=== PATIENT | female | born 1975 | race African-American/Black ===

== ENCOUNTER 2019-10-28 10:41 | Emergency (ER) | payer BC ==
[2019-10-28 11:09] VITALS: TEMP 97.3; BMI 38.3
--- NOTE | 2019-10-28 11:18 | PDOC ---
History of Present Illness - General Chief Complaint: Nausea/Vomiting Stated Complaint: Nausea/Vomiting Time Seen by Provider: 10/28/19 11:17 - History of Present Illness Initial Comments: 11/16/19 14:45 43 year old woman with no pmhx presents with R ear pain, nausea and dizziness after vomiting while outside of an urgent care after she was given meclizine. The patient was advised to come to the ER. At bedside the patient notes resolution of her symptoms with the meclizine. ROS GENERAL/CONSTITUTIONAL: No fever or chills. No weakness. HEAD, EYES, EARS, NOSE AND THROAT: No change in vision. No ear pain or discharge. No sore throat. CARDIOVASCULAR: No chest pain or shortness of breath RESPIRATORY: No cough, wheezing, or hemoptysis. GASTROINTESTINAL: + nausea, vomiting, No diarrhea or constipation. GENITOURINARY: No dysuria, frequency, or change in urination. MUSCULOSKELETAL: No joint or muscle swelling or pain. No neck or back pain. SKIN: No rash NEUROLOGIC: No headache, + vertigo, No loss of consciousness, or change in strength/sensation. ENDOCRINE: No increased thirst. No abnormal weight change HEMATOLOGIC/LYMPHATIC: No anemia, easy bleeding, or history of blood clots. ALLERGIC/IMMUNOLOGIC: No hives or skin allergy. PE GENERAL: Awake, alert, and fully oriented, in no acute distress HEAD: No signs of trauma, normocephalic, atraumatic EYES: PERRLA, EOMI, sclera anicteric, conjunctiva clear ENT: + R TM erythema, Moist mucosa NECK: Normal ROM, supple LUNGS: No distress, speaks full sentences, clear to auscultation bilaterally HEART: Regular rate and rhythm, normal S1 and S2, no murmurs, rubs or gallops, peripheral pulses normal and equal bilaterally. ABDOMEN: Soft, nontender. No guarding, no rebound. No masses EXTREMITIES : Normal inspection, Normal range of motion, no edema. No clubbing or cyanosis. NEUROLOGICAL: Cranial nerves II through XII grossly intact. Normal speech, normal gait, no focal sensorimotor deficits SKIN: Warm, Dry, normal turgor, no rashes or lesions noted Assessment and Plan 43 year old woman with no pmhx presents with R ear pain, nausea and dizziness after vomiting while outside of an urgent care after she was given meclizine. consider peripheral vertigo, less concerning for central cause as patient with normal neuro exam, improvement of symptoms afte rmeclizine, and normal ambulation through the ER. Patient with otits media doesd abx outpt care instruction provided follow upw and strict return precations Rach Quiroz, PGY3 Emergency Medicine Past History - Medical History Allergies/Adverse Reactions: Allergies Allergy/AdvReac Type Severity Reaction Status Date / Time No Known Allergies Allergy Verified 10/28/19 11:05 Home Medications: Ambulatory Orders Amoxicillin - [Amoxicillin 250mg Capsule -] 875 mg PO BID #14 capsule 10/28/19 Meclizine HCl 25 mg PO BID #7 tablet 10/28/19 COPD: No HTN: Yes Hypercholesterolemia: Yes - Surgical History Abdominal Surgery: Yes (varian cysts) - Psycho-Social/Smoking History Smoking History: Unknown if ever smoked - Substance Abuse Hx (Audit-C & DAST Scrn) In the last yr the pt used illegal drug/Rx for NonMed reason: Yes Score: Yes response is considered Positive: 1 Screen Result (Positive result requires Nsg. DAST-10): Positive *Physical Exam - Vital Signs Last Vital Signs Temp Pulse Resp BP Pulse Ox 97.3 F L 76 16 142/83 100 10/28/19 10:45 10/28/19 10:45 10/28/19 10:45 10/28/19 10:45 10/28/19 10:45 Discharge - Discharge Information Problems reviewed: Yes Clinical Impression/Diagnosis: Otitis media, Nausea & vomiting Condition: Stable Disposition: HOME - Additional Discharge Information Prescriptions: Amoxicillin - [Amoxicillin 250mg Capsule -] 875 mg PO BID #14 capsule Meclizine HCl 25 mg PO BID #7 tablet - Follow up/Referral Referrals: Marysol Chinchilla MD [Primary Care Provider] - - Patient Discharge Instructions Patient Printed Discharge Instructions: DI for Middle Ear Infection-Adult Additional Instructions: You were seen in the ER for complaints of ear pain and nausea and vomiting Often time vertigo and vomiting can happen from ear irritation. You were found to have an ear infection on the R You have a course of antibiotics that was sent to your pharmacy You also have anti-nausea and dizziness medications Please follow up with your Family Doctor within 1 week. Return to the ER if you develop worsening nausea, vomiting, chest pain, shortness of breath or sweating or any other concerning symptoms. - Post Discharge Activity
[2019-10-28] MEDS ORDERED: SODIUM CHLORIDE 1,000 ML IV SCH (11:30)
[2019-10-28] MEDS ORDERED: MECLIZINE HCL 12.5 MG TABLET PO ONE (11:52)
[2019-10-28] MEDS ORDERED: MECLIZINE HCL 12.5 MG TABLET ONE (11:56)
--- NOTE | 2019-10-28 12:18 | PDOC ---
Documentation entered by Dannielle Rios SCRIBE, acting as scribe for Courtney Patiño MD. Courtney Patiño MD: This documentation has been prepared by the Blanca waddell Xhesika, SCRIBE, under my direction and personally reviewed by me in its entirety. I confirm that the documentation accurately reflects all work, treatment, procedures, and medical decision making performed by me. Attending Attestation - Resident Resident Name: Rach Quiroz - ED Attending Attestation I have performed the following: I have examined & evaluated the patient, The case was reviewed & discussed with the resident, I agree w/resident's findings & plan, Exceptions are as noted - HPI HPI: 10/28/19 11:24 The patient is a 43y/o F with a h/o HTN, HLD who presents to the ED for R ear pain, dizziness, nausea and vomiting. Pt states she went to Urgent Care earlier today for her symptoms, was given Meclizine, vomited right after and was advised to come to the ED for evaluation. Pt. does reports significant improvement in her symptoms since arrival despite vomiting right after being given meclizine in urgent care. The patient denies chest pain, shortness of breath. Denies fever, chills, cough, diarrhea and constipation. Denies dysuria, frequency, urgency and hematuria. Allergies: NKDA PCP:Marysol Lee - Physicial Exam PE: 10/28/19 12:14 General: well appearing, NAD HEENT: EOMI, no nystagmus, NCAT, L TM wnl, R TM bulging and poor light reflex, no mastoid tenderness Neuro: aox3, speech fluent, face symmetric, finger to nose intact and symmetric bilaterally - Medical Decision Making 10/28/19 12:15 43 yo F with R ear pain and dizziness, unremarkable neuro exam, HEENT exam consistent with AOM and dizziness likely 2/2 AOM. Very unlikely CVA and neuro exam unremarkable. No mastoid tenderness to suggest mastoiditis. Plan: -meclizine 12.5mg (pt. vomited previous dose and reports only very mild symptoms at this time) -PO challenge -d/c with return precautions and rx amoxicillin, recommend PMD f/u and tylenol or motrin at home as needed for pain This clinical encounter is taking place during a federal and state health care emergency attributable to the novel Horne Virus pandemic. The [place] of the Department of Health and Human Services has declared, pursuant to the Public Health Service Act 319F-3 (42 U.S[place]C. 247d-6d), that a covered persons activities related to medical countermeasures against COVID-19 will be immune from liability under Federal and State law. Discharge - Discharge Information Problems reviewed: Yes Clinical Impression/Diagnosis: Otitis media, Nausea & vomiting Condition: Stable Disposition: HOME - Additional Discharge Information Prescriptions: Amoxicillin - [Amoxicillin 250mg Capsule -] 875 mg PO BID #14 capsule Meclizine HCl 25 mg PO BID #7 tablet - Follow up/Referral Referrals: Marysol Chinchilla MD [Primary Care Provider] - - Patient Discharge Instructions Patient Printed Discharge Instructions: DI for Middle Ear Infection-Adult Additional Instructions: You were seen in the ER for complaints of ear pain and nausea and vomiting Often time vertigo and vomiting can happen from ear irritation. You were found to have an ear infection on the R You have a course of antibiotics that was sent to your pharmacy You also have anti-nausea and dizziness medications Please follow up with your Family Doctor within 1 week. Return to the ER if you develop worsening nausea, vomiting, chest pain, shortness of breath or sweating or any other concerning symptoms. - Post Discharge Activity
[2019-10-28 12:55] VITALS: BP 134/79; PULSE 79
== END 2019-10-28 12:55 | disposition home or self-care (01) ==
LOC: JER 10:41
DX: H66.91 Otitis media, unspecified, right ear (principal); R11.2 Nausea with vomiting, unspecified
CPT/HCPCS: 99284-25

== ENCOUNTER 2022-11-23 10:27 | Emergency (ER) | payer BC ==
[2022-11-23 10:45] VITALS: BMI 43.0
[2022-11-23] MEDS ORDERED: EPINEPHrine 1:1,000 0.3 MG/0.3 ML SYR IM ONE (11:05)
[2022-11-23] MEDS ORDERED: FAMOTIDINE 20 MG/50 ML IVPB 20 MG/50 ML MG IVPB ONE ×2 (11:05→11:19)
[2022-11-23] MEDS ORDERED: LACTATED RINGERS SOLUTION 1000 ML INFUS.BAG IV ONE (11:06)
[2022-11-23] MEDS ORDERED: methylPREDNISolone NA SUCC 125 MG/2 ML VIAL IVPUSH ONE (11:07)
[2022-11-23] MEDS ORDERED: EPINEPHrine/PF 1 MG/1 ML (1:1,000) AMPULE ONE (11:19)
[2022-11-23] MEDS ORDERED: methylPREDNISolone NA SUCC 125 MG/2 ML VIAL ONE (11:19)
[2022-11-23 11:56] LABS: BASO % 0.4 % (0-2.0); EOS % 1.1 % (0-4.5); HEMATOCRIT 40.6 % (32.4-45.2); HEMOGLOBIN 13.8 GM/dL (10.7-15.3); LYMPH % 12.2 % (8-40); MCH 30.3 pg (25.7-33.7); MEAN CELL VOLUME 89.2 fl (80-96); MEAN PLT VOLUME 7.3 fl (7.5-11.1); MONO % 4.6 % (3.8-10.2); NEUT % 81.7 % (42.8-82.8); PLATELET COUNT 476 10^3/uL (134-434); RBC 4.55 M/mm3 (3.60-5.2); RDW 12.6 % (11.6-15.6); WHITE BLOOD COUNT 10.8 K/mm3 (4.0-10.0)
[2022-11-23 12:23] LABS: POTASSIUM 4.1 mmol/L (3.5-5.1)
[2022-11-23 12:25] LABS: CALCIUM 8.9 mg/dL (8.5-10.1)
[2022-11-23 12:26] LABS: ALBUMIN 3.9 g/dl (3.4-5.0); BLOOD UREA NITROGEN 19.1 mg/dL (7-18)
[2022-11-23 12:30] LABS: BILIRUBIN,TOTAL 0.8 mg/dL (0.2-1)
[2022-11-23] MEDS ORDERED: ACETAMINOPHEN 325 MG TABLET (FP) PO ONE (14:34)
[2022-11-23] MEDS ORDERED: ACETAMINOPHEN 325 MG TABLET (FP) ONE (14:41)
[2022-11-23 15:20] VITALS: BP 112/80; PULSE 84; RESP 18; TEMP 98
== END 2022-11-23 15:20 | disposition home or self-care (01) ==
LOC: JER 10:27
PROC: 3E033GC Introduction of Other Therapeutic Substance into Peripheral Vein, Percutaneous Approach (ICD-10-PCS; principal; 2022-11-23)
PROC: 3E023GC Introduction of Other Therapeutic Substance into Muscle, Percutaneous Approach (ICD-10-PCS; principal; 2022-11-23)
DX: T78.2XXA Anaphylactic shock, unspecified, initial encounter (principal)
CPT/HCPCS: 36415; 80053; 85025; 99291; J0171